=== PATIENT | female | born 1970 | race African-American/Black ===

== ENCOUNTER 2020-10-17 07:54 | Inpatient (IN) | payer OTHER ==
[~2020-10-17] VITALS: Ht 172.7 cm; Wt 95.3 kg
--- NOTE | 2020-10-17 08:06 | NUR ---
PTE REFIERE DOLOR ABDOMINAL Y VOMITOS DESDE HOY EN LA MADRUGADA . PTE REFIERE QUE SUFRE DE OBSTRUCIONES INTESTINALES .
--- NOTE | 2020-10-17 08:56 | NUR ---
PACIENTE EVALUADA POR MD. SE LE ORIENTA SOBRE TRATAMEINTO A SEGUIR. RN TORRES EXTRAE MUESTRAS DE LABORATORIO UTILIZANDO MEDIDAS ASEPTICAS. LE ADMINISTRA MEDICAMENTOS NILSON ORDEN MEDICA, PACIENTE NO PRESENTA REACCION ADVERSA AL MOMENTO.` SE MANTIENE BAJO OBSERVACION POR CAMBIOS.
--- NOTE | 2020-10-17 15:44 | NUR ---
SE RECIBE PTE ALERTA Y ORIENTADA X 3 ESFERAS EN CAMA CON BARANDAS ELEVADAS POR SEGURIDAD. PRESENTANDO BUEN PATRON RESPIRATORIO. RECIBIENDO IV'S 0.9NSS BAJANDO A 75ML/HR AREA DE VENOPUNCION EN BRAZO DERECHO AREA MARC DE EDEMA Y ERITEMA. PENDIENTE LECTURA DE CT. SE MANTIENE EN OBSERVACION.
== END 2020-10-18 08:55 | disposition left against medical advice (07) | DRG 390 ==
LOC: ER 07:54 → SEC-K 17:14 → SURG 19:55
PROVIDERS: ADMIT Surgery; ATTEND Surgery
PROC: BW2110Z Computerized Tomography (CT Scan) of Abdomen and Pelvis using Low Osmolar Contrast, Unenhanced and Enhanced (ICD-10-PCS; principal; 2020-10-17)
DX: K56.699 Other intestinal obstruction unspecified as to partial versus complete obstruction (principal); E86.0 Dehydration; Z20.822 Contact with and (suspected) exposure to COVID-19